=== PATIENT | female | born 1960 | race Caucasian/White ===

== ENCOUNTER 2022-08-20 14:17 | Outpatient (REF) | payer MEDICARE, MEDICAID, SELFPAY | END 2022-08-20 14:18 | disposition home or self-care (01) | LOC: HO.LAB 14:17 | PROVIDERS: Visit Provider Nurse Practitioner Family | DX: R30.0 Dysuria (principal) | CPT/HCPCS: 87086 ==

== ENCOUNTER 2023-10-23 12:33 | Emergency (ER) | payer MEDICARE, MEDICAID, SELFPAY ==
--- NOTE | ~2023-10-23 | CT_ITS ---
EXAMINATION: CT HEAD WITHOUT CONTRAST CT FACE WITHOUT CONTRAST CT CERVICAL SPINE WITHOUT CONTRAST CLINICAL INFORMATION: Bruising to the right side of face. Unknown injury. COMPARISON: CT cervical spine 04/14/2019. TECHNIQUE: Environmental Health And Safety Manager images were obtained. CT imaging of the head, face, and cervical spine was performed without contrast. Data was reformatted into multiplanar images at the acquisition workstation. This CT examination was performed using dose optimization techniques as appropriate, including one or more of the following: Automated exposure control, iterative reconstruction, and adjustment of technique factors (mA and/or kVp) according to patient size (this includes techniques or standardized protocols for targeted exams where dose is matched to indication/reason for exam). Fleischner Society criteria for the followup of incidental pulmonary nodules was implemented if appropriate. DLP: 1035 mGy-cm. FINDINGS: Head: There is no acute intracranial hemorrhage or abnormal extra-axial collection. No intracranial mass effect or midline shift. No hydrocephalus. There is apparent disproportionate atrophy of the cerebellum. Scattered nonspecific foci of hypoattenuation visualized within the periventricular white matter that most likely represent a chronic manifestation of small vessel ischemia. Garza-white matter differentiation is otherwise preserved and there is no evidence of acute territorial infarct. The calvarium and skull base are intact. Mastoid air cells and middle ear cavities are well aerated. Face: Globes and extraocular muscles are grossly symmetric. No abnormal retrobulbar or inflammation or hemorrhage. Lamina papyracea and orbital floors are intact and there is no evidence of acute orbital fracture. Orbital apices are unremarkable. Paranasal sinuses are well aerated. The left primary maxillary sinus ostium is narrow or occluded. There is however a patent accessory maxillary sinus ostium on the left side that opens into the middle meatus. The nasal septum deviates to the right. Cervical spine: There is slight anterolisthesis of C5 on C6 that appears related to facet degenerative changes at this level. Alignment is otherwise normal. Vertebral body heights are preserved. No acute fracture. No abnormal prevertebral soft tissue swelling. The tip of electrode is visualized within the left carotid space. Wires extend beyond the [id number] of this examination. Visualized lung apices are clear. CT/CT facial bones wo IV con IMPRESSION: Head and face: No acute intracranial hemorrhage. There is apparent disproportionate atrophy of the cerebellum. Scattered chronic small vessel ischemic changes are visualized within the periventricular white matter. No evidence of acute territorial infarct. No acute facial fracture. Cervical Spine: No acute cervical spine fracture. There is slight anterolisthesis of C5 on C6 that appears related to facet degenerative changes at this level.
--- NOTE | ~2023-10-23 | CT_ITS ---
EXAMINATION: CT HEAD WITHOUT CONTRAST CT FACE WITHOUT CONTRAST CT CERVICAL SPINE WITHOUT CONTRAST CLINICAL INFORMATION: Bruising to the right side of face. Unknown injury. COMPARISON: CT cervical spine 04/14/2019. TECHNIQUE: Clay Artist images were obtained. CT imaging of the head, face, and cervical spine was performed without contrast. Data was reformatted into multiplanar images at the acquisition workstation. This CT examination was performed using dose optimization techniques as appropriate, including one or more of the following: Automated exposure control, iterative reconstruction, and adjustment of technique factors (mA and/or kVp) according to patient size (this includes techniques or standardized protocols for targeted exams where dose is matched to indication/reason for exam). Fleischner Society criteria for the followup of incidental pulmonary nodules was implemented if appropriate. DLP: 1035 mGy-cm. FINDINGS: Head: There is no acute intracranial hemorrhage or abnormal extra-axial collection. No intracranial mass effect or midline shift. No hydrocephalus. There is apparent disproportionate atrophy of the cerebellum. Scattered nonspecific foci of hypoattenuation visualized within the periventricular white matter that most likely represent a chronic manifestation of small vessel ischemia. Garza-white matter differentiation is otherwise preserved and there is no evidence of acute territorial infarct. The calvarium and skull base are intact. Mastoid air cells and middle ear cavities are well aerated. Face: Globes and extraocular muscles are grossly symmetric. No abnormal retrobulbar or inflammation or hemorrhage. Lamina papyracea and orbital floors are intact and there is no evidence of acute orbital fracture. Orbital apices are unremarkable. Paranasal sinuses are well aerated. The left primary maxillary sinus ostium is narrow or occluded. There is however a patent accessory maxillary sinus ostium on the left side that opens into the middle meatus. The nasal septum deviates to the right. Cervical spine: There is slight anterolisthesis of C5 on C6 that appears related to facet degenerative changes at this level. Alignment is otherwise normal. Vertebral body heights are preserved. No acute fracture. No abnormal prevertebral soft tissue swelling. The tip of electrode is visualized within the left carotid space. Wires extend beyond the [id number] of this examination. Visualized lung apices are clear. CT/CT head/brain wo IV con IMPRESSION: Head and face: No acute intracranial hemorrhage. There is apparent disproportionate atrophy of the cerebellum. Scattered chronic small vessel ischemic changes are visualized within the periventricular white matter. No evidence of acute territorial infarct. No acute facial fracture. Cervical Spine: No acute cervical spine fracture. There is slight anterolisthesis of C5 on C6 that appears related to facet degenerative changes at this level.
--- NOTE | ~2023-10-23 | CT_ITS ---
EXAMINATION: CT HEAD WITHOUT CONTRAST CT FACE WITHOUT CONTRAST CT CERVICAL SPINE WITHOUT CONTRAST CLINICAL INFORMATION: Bruising to the right side of face. Unknown injury. COMPARISON: CT cervical spine 04/14/2019. TECHNIQUE: Buyer Tobacco Head images were obtained. CT imaging of the head, face, and cervical spine was performed without contrast. Data was reformatted into multiplanar images at the acquisition workstation. This CT examination was performed using dose optimization techniques as appropriate, including one or more of the following: Automated exposure control, iterative reconstruction, and adjustment of technique factors (mA and/or kVp) according to patient size (this includes techniques or standardized protocols for targeted exams where dose is matched to indication/reason for exam). Fleischner Society criteria for the followup of incidental pulmonary nodules was implemented if appropriate. DLP: 1035 mGy-cm. FINDINGS: Head: There is no acute intracranial hemorrhage or abnormal extra-axial collection. No intracranial mass effect or midline shift. No hydrocephalus. There is apparent disproportionate atrophy of the cerebellum. Scattered nonspecific foci of hypoattenuation visualized within the periventricular white matter that most likely represent a chronic manifestation of small vessel ischemia. Garza-white matter differentiation is otherwise preserved and there is no evidence of acute territorial infarct. The calvarium and skull base are intact. Mastoid air cells and middle ear cavities are well aerated. Face: Globes and extraocular muscles are grossly symmetric. No abnormal retrobulbar or inflammation or hemorrhage. Lamina papyracea and orbital floors are intact and there is no evidence of acute orbital fracture. Orbital apices are unremarkable. Paranasal sinuses are well aerated. The left primary maxillary sinus ostium is narrow or occluded. There is however a patent accessory maxillary sinus ostium on the left side that opens into the middle meatus. The nasal septum deviates to the right. Cervical spine: There is slight anterolisthesis of C5 on C6 that appears related to facet degenerative changes at this level. Alignment is otherwise normal. Vertebral body heights are preserved. No acute fracture. No abnormal prevertebral soft tissue swelling. The tip of electrode is visualized within the left carotid space. Wires extend beyond the [id number] of this examination. Visualized lung apices are clear. CT/CT cervical spine wo IV con IMPRESSION: Head and face: No acute intracranial hemorrhage. There is apparent disproportionate atrophy of the cerebellum. Scattered chronic small vessel ischemic changes are visualized within the periventricular white matter. No evidence of acute territorial infarct. No acute facial fracture. Cervical Spine: No acute cervical spine fracture. There is slight anterolisthesis of C5 on C6 that appears related to facet degenerative changes at this level.
[2023-10-23 12:55] VITALS: BP 121/71; PULSE 87; RESP 20; TEMP 36.5; O2SAT 95; BMI 19.5
--- NOTE | 2023-10-23 12:55 | ED_ITS ---
HPI - Head Injury General Chief complaint: Fall Stated complaint: Fall/Bruised Face Time Seen by Provider: 10/23/23 13:27 Source: patient and other (long term staff provided additional history and confirmed the history provided by the patient.) Mode of arrival: wheelchair Limitations: other (patient has cognitive history preventing her from providing all necessary HPI - staff assisted) History of Present Illness HPI Narrative: Patient is a 63 year old assigned female at with a history of a cognitive process presenting to the emergency department today with right sided facial bruising. Patient's staff states that the patient presented this morning with this right sided facial bruising and she is suspicious the patient had an unwitnessed fall. Related Data Home Medications Medication Instructions Recorded Confirmed acetaminophen 650 mg 650 mg PO Q8H 08/20/22 tablet,extended release (Mapap Arthritis Pain) atorvastatin 20 mg tablet 20 mg PO DAILY 08/20/22 bisacodyl 5 mg tablet,delayed 5 mg PO BEDTIME 08/20/22 release (Dulcolax (bisacodyl)) clotrimazole-betamethasone 1 appl topical 08/20/22 %-0.05 % topical cream docusate sodium 100 mg capsule 100 mg PO BID 08/20/22 (Colace) felbamate 600 mg tablet mg PO 08/20/22 fluoxetine 40 mg capsule 40 mg PO DAILY 08/20/22 lacosamide 200 mg tablet mg PO 08/20/22 levetiracetam 500 mg tablet 500 mg PO BID 08/20/22 lorazepam 1 mg tablet 1 mg PO DAILY PRN 08/20/22 oxcarbazepine 150 mg tablet 150 mg PO DAILY 08/20/22 oxcarbazepine 300 mg tablet 300 mg PO TID 08/20/22 Allergies Allergy/AdvReac Type Severity Reaction Status Date / Time Penicillins Allergy Mild RASH Unverified 08/20/22 14:17 penicillin V Allergy Unknown N/V, rash Verified 08/20/22 14:17 penicillin Allergy Unknown Unknown Uncoded 08/20/22 14:17 Review of Systems Review of Systems: Yes Other (patient has a cognitive process that makes her unable to provide an ROS) Musculoskeletal: Comments: right sided forehead and facial bruising PMFSH Past Medical History Attestation statement: The following information was validated with the patient. (all information validated with the patient's long term staff.) Source: old records reviewed, nursing notes reviewed and other (patient's long term staff provided additional history and confirmed the history provided by the patient.) Social History Social History Advance Directives: No Advance Directives Information Provided: Yes Physical Exam Vital Signs: Vital Signs: Last Vital Signs Temp 99.0 F 10/23/23 15:13 Pulse 81 10/23/23 15:13 Resp 16 10/23/23 15:13 BP 124/70 10/23/23 15:13 Pulse Ox 99 10/23/23 15:13 O2 Del Method Room Air 10/23/23 15:13 BMI result Body Mass Index 19.5 Const: General: cooperative, no acute distress, alert and awake Nutritional Appearance: well nourished Limitations: wheelchair and other limitations (patient has a cognitive process) HEENT: Ears: hearing grossly normal bilaterally and external ears normal General nose exam: Normal external nose present, no nasal discharge noted and no epistaxis Face and sinus: No abrasion, No laceration and Yes other (minimal bruising present to the right forehead) Mouth: Normal oral and palatal mucosa present, no drooling and no muffled voice Eyes: General: appearance normal, both eyes and all related structures Periorbital: periorbital findings normal Eyelids: Yes eyelids normal Conjunctivae: conjunctivae normal Pupils: Equal, round and reactive pupils present EOM: EOMs intact bilaterally Neck: Neck: Yes normal visual inspection, Yes full ROM and Yes no lymphadenopathy Chest: Chest palpation & inspection: normal inspection of the chest Resp: Effort & Inspection: normal respiratory effort and able to speak in complete sentences GI: Inspection: Yes normal to inspection Neuro: General: moves all extremities Cranial nerves: Yes Equal, round and reactive pupils present Extrem: General: Yes normal to inspection, Yes full ROM and Yes capillary refill normal Psych: Appearance: grossly normal Mental Status: mental status grossly normal Affect: normal affect Attitude: cooperative Thought process: Normal thought process present Thought content: Normal thought content present Insight: Good insight present (Psych) Course Course Course Narrative: This is a rapid medical exam: Additional HPI, ROS, PE not included below will be deferred to primary provider. Patient is a 63-year-old female with history of seizure disorder presenting with technical solution architect who noted bruising to patient's right side of face this morning. States the day program thought she may have bumped her face on her wheelchair while leaning forward to pick something up. Patient is not able to provide accurate history. Patient is not anticoagulated. Gleason Operator is unsure of hx but has information in the car, will go out to obtain. Plan: CT head, face, neck Medical Decision Making Medical Decision Making MDM Narrative: Patient is a 63 year old assigned female at with a history of a cognitive process making her unable to fully participate in HPI or ROS presenting to the emergency department today with right sided facial bruising. Patient's physical exam was as noted in the physical exam portion of this note. Patient's CT head, c-spine, and facial bones showed no acute process. I explained my physical exam findings as well as all test results to the patient and the patient's long term staff. I answered all questions asked by the patient and the patient's long term staff. I stressed the importance of the patient taking her medication as prescribed. I stressed the importance of the patient following up with her primary care provider. I stressed the importance of the patient returning to the emergency department immediately if her symptoms were to worsen or if she were to develop any dizziness, shortness of breath, difficulty breathing, chest pain, blurry vision, loss of vision, nausea, vomiting, abdominal pain, fever, chills, back pain, or any other complaints. Patient's long term staff verbalized agreement and understanding with this treatment plan and discharge. Differential Diagnosis Differential Diagnoses: The differential diagnosis associated with the presentation includes Fall Head injury Facial injury Facial contusion Forehead contusion Admission/Observation Consideration of admission/observation: Escalation of care including admission/observation considered Patient would have been admitted to the hospital had her work up had any findings where hospital admission was appropriate and her clinical presentation warranted hospital admission. Independent Interpretation I performed an independent interpretation of an: CT Scan Interpretation: My interpretation is in agreement with the radiologist's impression of these [facility] ging studies. EXAMINATION: CT HEAD WITHOUT CONTRAST CT FACE WITHOUT CONTRAST CT CERVICAL SPINE WITHOUT CONTRAST CLINICAL INFORMATION: Bruising to the right side of face. Unknown injury. COMPARISON: CT cervical spine 04/14/2019. TECHNIQUE: Medical Assisting Program Director images were obtained. CT imaging of the head, face, and cervical spine was performed without contrast. Data was reformatted into multiplanar images at the acquisition workstation. This CT examination was performed using dose optimization techniques as appropriate, including one or more of the following: Automated exposure control, iterative reconstruction, and adjustment of technique factors (mA and/or kVp) according to patient size (this includes techniques or standardized protocols for targeted exams where dose is matched to indication/reason for exam). Fleischner Society criteria for the followup of incidental pulmonary nodules was implemented if appropriate. DLP: 1035 mGy-cm. FINDINGS: Head: There is no acute intracranial hemorrhage or abnormal extra-axial collection. No intracranial mass effect or midline shift. No hydrocephalus. There is apparent disproportionate atrophy of the cerebellum. Scattered nonspecific foci of hypoattenuation visualized within the periventricular white matter that most likely represent a chronic manifestation of small vessel ischemia. Garza-white matter differentiation is otherwise preserved and there is no evidence of acute territorial infarct. The calvarium and skull base are intact. Mastoid air cells and middle ear cavities are well aerated. Face: Globes and extraocular muscles are grossly symmetric. No abnormal retrobulbar or inflammation or hemorrhage. Lamina papyracea and orbital floors are intact and there is no evidence of acute orbital fracture. Orbital apices are unremarkable. Paranasal sinuses are well aerated. The left primary maxillary sinus ostium is narrow or occluded. There is however a patent accessory maxillary sinus ostium on the left side that opens into the middle meatus. The nasal septum deviates to the right. Cervical spine: There is slight anterolisthesis of C5 on C6 that appears related to facet degenerative changes at this level. Alignment is otherwise normal. Vertebral body heights are preserved. No acute fracture. No abnormal prevertebral soft tissue swelling. The tip of electrode is visualized within the left carotid space. Wires extend beyond the [id number] of this examination. Visualized lung apices are clear. CT/CT head/brain wo IV con IMPRESSION: Head and face: No acute intracranial hemorrhage. There is apparent disproportionate atrophy of the cerebellum. Scattered chronic small vessel ischemic changes are visualized within the periventricular white matter. No evidence of acute territorial infarct. No acute facial fracture. Cervical Spine: No acute cervical spine fracture. There is slight anterolisthesis of C5 on C6 that appears related to facet degenerative changes at this level. Dictated By: Ricki Mccarthy MD Signed By: Electronically signed by Ricki Mccarthy MD 10/23/23 3482 Radiology Impression Discussion of test interpretation with radiology: I have reviewed the radiologist's reading. Independent Historian Clinical information obtained from an independent historian. History obtained from or confirmed by: Other (patient's long term staff provided additional history and confirmed the history provided by the patient.) Discharge Plan Discharge Clinical Impression: Traumatic ecchymosis of forehead Patient Disposition: Home, Self-Care Instructions: Facial Contusion (ED) Additional Instructions: Follow up with your primary care provider. Return to the emergency department immediately if your symptoms worsen or if you develop any dizziness, shortness of breath, difficulty breathing, chest pain, blurry vision, loss of vision, nausea, vomiting, abdominal pain, fever, chills, back pain, or any other complaints. Prescriptions: No Action levetiracetam 500 mg tablet 500 mg PO BID lacosamide 200 mg tablet PO felbamate 600 mg tablet PO oxcarbazepine 300 mg tablet 300 mg PO TID oxcarbazepine 150 mg tablet 150 mg PO DAILY atorvastatin 20 mg tablet 20 mg PO DAILY fluoxetine 40 mg capsule 40 mg PO DAILY clotrimazole-betamethasone 1-0.05 % cream topical lorazepam 1 mg tablet 1 mg PO DAILY PRN docusate sodium [Colace] 100 mg capsule 100 mg PO BID bisacodyl [Dulcolax (bisacodyl)] 5 mg tablet,delayed release (DR/EC) 5 mg PO BEDTIME acetaminophen [Mapap Arthritis Pain] 650 mg tablet extended release 650 mg PO Q8H Referrals: Larry Bartlett III, MD [Primary Care Provider] - Interventions: ED Discharge Assessment Last Done: 10/23/23 15:13 Discharge Date/Time: 10/23/23 15:15 Print Language: Vietnamese
[2023-10-23 15:13] VITALS: BP 124/70; PULSE 81; RESP 16; TEMP 37.2; O2SAT 99
== END 2023-10-23 15:15 | disposition home or self-care (01) ==
PROVIDERS: Emergency Provider Emergency Medicine; PCP Internal Medicine
DX: S00.83XA Contusion of other part of head, initial encounter (principal); M54.2 Cervicalgia; R51.9 Headache, unspecified; W01.10XA Fall on same level from slipping, tripping and stumbling with subsequent striking against unspecified object, initial encounter; Y93.9 Activity, unspecified; Y92.9 Unspecified place or not applicable; Y99.8 Other external cause status
CPT/HCPCS: 70450; 70486; 72125; 99283; 99284